=== PATIENT | male | born 1980 | race Caucasian/White ===

== ENCOUNTER 2025-05-06 00:31 | Day surgery (SDC) | payer OTHER, SELFPAY ==
[2025-04-21 12:33] VITALS: BMI 26.4
[2025-05-06 07:14] VITALS: BP 136/95; PULSE 103; RESP 18; TEMP 36.1; O2SAT 96
[2025-05-06] MEDS: LACTATED RINGERS 1,000 ML 150 ML IV CONT (07:31)
--- NOTE | 2025-05-06 07:43 | P.PNAN_ITS ---
Anes - Initial Pre Proc Eval Procedure: Operation Date: 05/06/25 08:30 Proposed Procedures p Screening Colonoscopy - Germain Patel MD Date/Time: 05/06/25 07:43 Surgeon: Germain Patel MD Pre Op Diagnosis: Screening Patient Data Age: 44 Gender: M Height: 1.83 m Weight: 85.5 kg Last Vital Signs Temp 97 F L 05/06/25 07:14 Pulse 103 H 05/06/25 07:14 Resp 18 05/06/25 07:14 BP 136/95 H 05/06/25 07:14 Pulse Ox 96 05/06/25 07:14 O2 Del Method Room Air 05/06/25 07:14 Allergies Allergy/AdvReac Type Severity Reaction Status Date / Time No Known Allergies Allergy Verified 05/06/25 07:12 Home Medications ?Medication ?Instructions ?Recorded ?Confirmed ?Type No Home Medications 05/06/25 05/06/25 H istory Patient hx anesthesia problems: none Family hx anesthesia problems: none Results Review: All pre-operative results and documents have been reviewed as part of the pre- operative evaluation. FORMERLY [facility], [facility] Past Medical History Medical History Family history of prostate cancer Family History Family History Father Malignant neoplasm of prostate Family history of heart disease in male family member before age 55 Mother Family history of diabetes mellitus in first degree relative Social History Social History Smoking status: Current some day smoker Second hand tobacco smoke exposure: No Additional smoking assessment comments: 1 or 2 cigarettes per 6 months. Prior 1 pack per day for 20 years. 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[employer] Gender identity (if verbalized by the patient): Male Anes - Eval Final PreProcedure Day of Procedure 05/06/25 07:43 Patient weight: overweight Lungs: normal air movement Airway: Mallampati scale class II Neurological: alert and oriented Last oral intake: >/= 8 hours ASA classification: II Emergent: no Anesthetic plan: proceed Anesthesia type and monitoring: general GIVS and standard monitoring Results Review: All pre-operative results and documents have been reviewed as part of the pre- operative evaluation. BMI 25, occ smoker, nicotine pouches most days. Informed Consent: The patient's anesthetic plan and its attendant risks and benefits were discussed with the patient/family/POA. Questions were solicited and answers provided to the satisfaction of the patient/family/POA.
--- NOTE | 2025-05-06 08:50 | PM.IMHP2 ---
H&P: HPI History of Present Illness Date/Time: 05/06/25 08:50 Chief Complaint: Screening colonoscopy Narrative: This is the patient's first colonoscopy. There are no GI symptoms and there is no family history of colorectal cancer. Review of Systems Review of Systems: All systems reviewed & are unremarkable except as noted in HPI and below PMFSH Past Medical History Medical History Family history of prostate cancer Family History Family History Father Malignant neoplasm of prostate Family history of heart disease in male family member before age 55 Mother Family history of diabetes mellitus in first degree relative Social History Social History Smoking status: Current some day smoker Second hand tobacco smoke exposure: No Additional smoking assessment comments: 1 or 2 cigarettes per 6 months. Prior 1 pack per day for 20 years. 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[employer] Gender identity (if verbalized by the patient): Male Meds Home Medications and Allergies Home Medications ?Medication ?Instructions ?Recorded ?Confirmed ?Type No Home Medications 05/06/25 05/06/25 History Allergies Allergy/AdvReac Type Severity Reaction Status Date / Time No Known Allergies Allergy Verified 05/06/25 07:12 Vital Signs Vital Signs - 24 hr 05/06/25 07:14 Temperature 97 F L Pulse Rate 103 H Respiratory Rate 18 Blood Pressure 136/95 H Pulse Oximetry 96 Oxygen Delivery Room Air Exam Const: General: cooperative and healthy appearing Resp: Effort & Inspection: normal respiratory effort and able to speak in complete sentences Auscultation: clear to auscultation bilaterally Cardio: Rate: regular rate Rhythm: regular rhythm GI: Inspection: normal to inspection GI Palp: No No hepatosplenomegaly present Auscultation: normal bowel sounds Rectal Exam: deferred Skin: General skin exam: normal color Psych: Appearance: grossly normal Mental Status: mental status grossly normal Assessment and Plan Assessment and plan (1) Encounter for screening colonoscopy: Code(s): Z12.11 - Encounter for screening for malignant neoplasm of colon Status: Acute Assessment and Plan: The patient is deemed a good candidate for the procedure. Consent signed. Will proceed.
--- NOTE | 2025-05-06 09:03 | S_PTH ---
PATIENT: Jl Gomez LOC: [facility] U#:[id number] AGE/SX: 44/M ROOM: RE05/06/[address]: Germain Patel MD : 1980 BED: DIS: 05/06/2025 SPEC #: [id number] RECD: 05/06/25 09:57 STATUS: MANUELITO REMan #: [id number] DELIA: 05/06/25 09:[address]: Germain Patel DEPT: [facility] Surgical RECD BY: Ronaldo Del Rosario ENTERED: 05/06/25 09:57 SP TYPE: Surgical OTHR DR: Timmy Acosta MD Tissues: A - Colon Polypectomy B - Colon Polypectomy C - Colon Polypectomy D - Colon Polypectomy Procedures: Hematoxylin and Eosin Stain Gross and Microscopic Level 4
[2025-05-06 09:35] VITALS: BP 118/79; PULSE 64; RESP 14; O2SAT 98
[2025-05-06 09:45] VITALS: BP 125/90; PULSE 62; RESP 17; O2SAT 100
[2025-05-06 09:55] VITALS: BP 128/90; PULSE 63; RESP 23; O2SAT 100
== END 2025-05-06 10:24 | disposition home or self-care (01) ==
PROVIDERS: PCP Family Medicine; Referring Provider Family Medicine; Visit Provider Internal Medicine Gastroenterology
PROC: 0DJD8ZZ Inspection of Lower Intestinal Tract, Via Natural or Artificial Opening Endoscopic (ICD-10-PCS; CPT 45378; principal; 2025-05-06 08:30)
DX: Z12.11 Encounter for screening for malignant neoplasm of colon (principal); D17.5 Benign lipomatous neoplasm of intra-abdominal organs; D12.5 Benign neoplasm of sigmoid colon; D12.8 Benign neoplasm of rectum; K63.5 Polyp of colon; K62.1 Rectal polyp; K57.30 Diverticulosis of large intestine without perforation or abscess without bleeding; Z72.0 Tobacco use; F12.90 Cannabis use, unspecified, uncomplicated
CPT/HCPCS: 45385; 45381; 88305; J2003; J2704; J7120